=== PATIENT | female | born 1980 | race Caucasian/White ===

== ENCOUNTER 2020-07-15 17:28 | Emergency (ER) | payer BC, MEDICAID ==
[~2020-07-15] VITALS: Ht 160 cm; Wt 65.9 kg
[2020-07-15 17:42] VITALS: BP 158/88
[2020-07-15] MEDS ORDERED: normal saline 1000ML IV soln IVB ONE (18:25)
[2020-07-15] MEDS ORDERED: ketorolac trometh. 30mg/ml inj. IV ONE (18:45)
[2020-07-15 18:56] LABS: URINE HCG NEGATIVE (NEG)
[2020-07-15 18:58] LABS: CLARITY,URINE CLEAR (Clear); COLOR,URINE YELLOW (Yellow); GLUCOSE, URINE NEGATIVE (Neg); KETONES,URINE NEGATIVE (Neg); LEUKOCYTE ESTERASE ,URINE NEGATIVE (Neg); NITRITES, URINE NEGATIVE (Neg); OCCULT BLOOD,URINE LARGE (Neg); PROTEIN,URINE NEGATIVE (Neg); UROBILINOGEN,URINE 0.2 E.U/dL (0.2-1.0)
[2020-07-15 19:03] LABS: BASOPHILS # (AUTO) 0.1 X10'3 (0-0.2); BASOPHILS % (AUTO) 1.1 % (0-1); EOSINOPHILS # (AUTO) 0.3 X10'3 (0-0.9); EOSINOPHILS % (AUTO) 2.6 % (0-6); HEMATOCRIT 41.6 % (35.0-45.0); HEMOGLOBIN 14.7 g/dl (12.0-16.0); LYMPHOCYTES % (AUTO) 27.6 % (21-51); MEAN CORPUSCULAR HEMOGLOBIN 31.4 PG (27.0-31.0); MEAN CORPUSCULAR HGB CONC 35.3 g/dL (33.0-36.5); MEAN CORPUSCULAR VOLUME 89.1 FL (78-98); MEAN PLATELET VOLUME 7.6 FL (7.4-10.4); MONOCYTES # (AUTO) 0.6 X10'3 (0-0.9); MONOCYTES % (AUTO) 5.7 % (2-12); NEUTROPHILS # (AUTO) 6.9 X10'3 (1.8-7.7); PLATELET COUNT 339 X10'3 (140-440); RED BLOOD COUNT 4.67 X10'6 (4.20-5.60); RED CELL DISTRIBUTION WIDTH 12.7 % (11.5-14.5)
[2020-07-15 19:10] LABS: ALANINE AMINOTRANSFERASE 20 U/L (12-78); ALBUMIN 3.9 G/DL (3.4-5.0); ALKALINE PHOSPHATASE 68 IU/L (46-116); ANION GAP 7 (8-16); ASPARTATE AMINO TRANSFERASE 12 U/L (10-37); BLOOD UREA NITROGEN 11 MG/DL (7-18); BUN/CREATININE RATIO 15.3 (6.6-38.0); CHLORIDE 104 MMOL/L (99-107); CREATININE 0.72 MG/DL (0.40-0.90); GLUCOSE 86 MG/DL (70-104); LIPASE 207 U/L (73-393); POTASSIUM 3.5 MMOL/L (3.5-5.1); SODIUM 137 MMOL/L (135-145); TOTAL CARBON DIOXIDE 26.3 MMOL/L (24-32); TOTAL PROTEIN 7.8 G/DL (6.4-8.2); eGFR > 90 ML/MIN
[2020-07-15 19:18] LABS: UA COLLECTION TYPE CLN CATCH MIDSTREAM
[2020-07-15 19:19] LABS: BACTERIA,URINE FEW /HPF (Neg); SQUAMOUS EPITHELIAL CELL,UR FEW /LPF (FEW); WBC,URINE 0-4 /HPF (0-4)
[2020-07-15] MEDS ORDERED: HYDR-3965 PO (19:45)
== END 2020-07-15 20:06 | disposition home or self-care (01) ==
LOC: ER 17:28
DX: N20.0 Calculus of kidney (principal); R10.84 Generalized abdominal pain; F12.90 Cannabis use, unspecified, uncomplicated; Z88.0 Allergy status to penicillin; Z79.899 Other long term (current) drug therapy
CPT/HCPCS: 36415; 74176; 80053; 81001; 81025; 83690; 85025; 96361; 96374; 99284; J1885; J7030

== ENCOUNTER 2020-07-22 22:34 | Emergency (ER) | payer MEDICAID ==
[~2020-07-22] VITALS: Ht 160 cm; Wt 70.0 kg
[2020-07-22] MEDS ORDERED: diphenhydrAMINE 25mg capsule PO ONE (22:55)
[2020-07-22] MEDS ORDERED: methylPREDNISolone sod succ 125mg/2ml vial IM ONE (22:55)
[2020-07-22] MEDS ORDERED: LORazepam 1 MG tablet PO ONE (22:55)
[2020-07-22] MEDS ORDERED: TRAM50TA2 PO (23:21)
[2020-07-22] MEDS ORDERED: PRED20TA PO (23:21)
[2020-07-22 23:29] VITALS: BP 123/77
== END 2020-07-22 23:30 | disposition home or self-care (01) ==
LOC: ER 22:35
DX: L50.0 Allergic urticaria (principal); T39.8X5A Adverse effect of other nonopioid analgesics and antipyretics, not elsewhere classified, initial encounter; F12.90 Cannabis use, unspecified, uncomplicated; Z88.0 Allergy status to penicillin; Z79.899 Other long term (current) drug therapy; Y92.89 Other specified places as the place of occurrence of the external cause
CPT/HCPCS: 96372; 99283; J2930; Q0163

== ENCOUNTER 2021-02-14 23:52 | Emergency (ER) | payer MEDICAID ==
[~2021-02-14] VITALS: Ht 160 cm; Wt 66.0 kg
[2021-02-14 23:57] VITALS: BP 150/102
== END 2021-02-15 07:16 | disposition home or self-care (01) ==
LOC: ER 23:53
DX: R22.42 Localized swelling, mass and lump, left lower limb (principal); F41.9 Anxiety disorder, unspecified; F12.90 Cannabis use, unspecified, uncomplicated; Z88.0 Allergy status to penicillin; Z88.8 Allergy status to other drugs, medicaments and biological substances
CPT/HCPCS: 99281